=== PATIENT | female | born 1970 | race Caucasian/White ===

== ENCOUNTER 2021-02-08 09:25 | Day surgery (SDC) | payer OTHER ==
[~2021-02-08 09:25] MED LIST: Midazolam 1 MG/ML 2 ML SDV ONE; Propofol 200 MG/20 ML SDV ONE
[2021-02-08] MEDS ORDERED: Midazolam 1 MG/ML 2 ML SDV ONE (10:00)
[2021-02-08] MEDS ORDERED: Propofol 200 MG/20 ML SDV ONE (10:00)
--- NOTE | 2021-02-08 10:02 | PCM.PN ---
- General Info Date of Service: 02/08/21 - Review of Systems Systems Review Comment:: 50-year-old female referred for her initial screening colonoscopy. She thinks that her mother has had polyps. The patient denies any recent GI symptoms. Her recent history and physical is reviewed and no significant changes are noted. I have discussed the proposed colonoscopy with the patient. Risks such as but not limited to bleeding and GI injury reviewed. She agrees to proceed. - Patient Data Vitals - Most Recent: Last Vital Signs Temp 97.6 F 02/08/21 09:55 Pulse 68 02/08/21 09:55 Resp 18 02/08/21 09:55 BP 101/69 02/08/21 09:55 Pulse Ox 98 02/08/21 09:55 Weight - Most Recent: 60.328 kg Lab Results Last 24 Hours: Laboratory Results - last 24 hr 02/08/21 Range/Units 09:34 Urine HCG, Qual Negative Med Orders - Current: Current Medications Lactated Ringer's (Ringers, Lactated) 1,000 mls @ 125 mls/hr IV ASDIRECTED CALLY Sodium Chloride (Sodium Chloride 0.9% 10 Ml Syringe) 10 ml FLUSH ASDIRECTED PRN PRN Reason: Keep Vein Open Discontinued Medications Midazolam HCl (Midazolam 1 Mg/Ml 2 Ml Sdv) Confirm Administered Dose 2 mg .ROUTE .STK-MED ONE Stop: 02/08/21 09:22 Propofol (Propofol 200 Mg/20 Ml Sdv) Confirm Administered Dose 400 mg .ROUTE .STK-MED ONE Stop: 02/08/21 09:23 - Patient Data Lab Results Last 24 hrs: Laboratory Results - last 24 hr 02/08/21 Range/Units 09:34 Urine HCG, Qual Negative Sepsis Event Note - Focused Exam Vital Signs: Vital Signs Temp Pulse Resp BP Pulse Ox 02/08/21 09:55 97.6 F 68 18 101/69 98 - Problem List Review Problem List Initiated/Reviewed/Updated: Yes - My Orders Last 24 Hours: My Active Orders 02/08/21 13:00 Patient Status [ADT] Routine Peripheral IV Care [RC] . DIRECTED Verify Patient Consent Obtain [RC] ASDIRECTED Lactated Ringers [Ringers, Lactated] 1,000 ml IV ASDIRECTED Sodium Chloride 0.9% [Saline Flush] 10 ml FLUSH ASDIRECTED PRN Peripheral IV Insertion Adult [OM.PC] Routine - Assessment Assessment:: Colon cancer screening - Plan Plan:: Colonoscopy
--- NOTE | 2021-02-08 10:30 | PCM.OPNOTE ---
- General Post-Op/Procedure Note Date of Surgery/Procedure: 02/08/21 Operative Procedure(s): Colonoscopy Findings: Normal-appearing colon Pre Op Diagnosis: Colon cancer screening Post-Op Diagnosis: Normal Colon Anesthesia Technique: MAC Primary Surgeon: Kalyan Leyv Pathology: none EBL in mLs: 0 Complications: None Condition: Good
[2021-02-08] MEDS ORDERED: Lactated Ringers 1,000 ML IV SCH (13:00)
[2021-02-08] MEDS ORDERED: Sodium Chloride 0.9% 10 ML Syringe FLUSH PRN (13:00)
--- NOTE | 2021-02-08 15:34 | OR ---
Date of Procedure: 02/08/2021 PREOPERATIVE DIAGNOSIS: Colon cancer screening. POSTOPERATIVE DIAGNOSIS: Normal colon. OPERATIONS PERFORMED: Colonoscopy. INDICATIONS FOR SURGERY: This 50-year-old female is referred today for her initial screening colonoscopy. She denies any recent change in bowel pattern. FINDINGS: The patient's colon and rectum appeared normal. No polyps or other abnormalities were seen. DESCRIPTION OF PROCEDURE: The patient was taken to the operating room. She was given intravenous sedation, and with her in the left lateral decubitus position, digital rectal exam was performed showing no rectal masses. The Olympus colonoscope was inserted into the rectum. Retroflexed examination of the rectal canal was performed. The scope was then carefully advanced under direct visualization through the entire length of the colon until the cecum was reached. Cecal acquisition was confirmed by noting the normal internal cecal anatomy including the appendiceal orifice and the ileocecal valve. The light was also noted to transilluminate the abdominal wall in the right lower quadrant. After examining the cecum, the scope was slowly withdrawn sequentially re-examining the colonic segments until the entire colon and rectum had been fully examined. The scope was removed, and the patient was taken from the operating room in satisfactory condition. ESTIMATED BLOOD LOSS: Zero. COMPLICATIONS: None. PROGNOSIS: Good. SANDRA Levy MD /[id number]
== END 2021-02-08 11:36 | disposition home or self-care (01) ==
LOC: LL.SDS 09:25
PROVIDERS: ATTEND Surgery
DX: Z12.11 Encounter for screening for malignant neoplasm of colon (principal); L21.9 Seborrheic dermatitis, unspecified; E78.5 Hyperlipidemia, unspecified; E04.2 Nontoxic multinodular goiter; Z98.890 Other specified postprocedural states; E61.1 Iron deficiency
CPT/HCPCS: 00812; 81025; J2250; J2704